=== PATIENT | male | born 2000 | race Caucasian/White ===

== ENCOUNTER 2025-01-03 22:27 | Emergency (ER) | payer OTHER ==
[~2025-01-03] VITALS: Ht 180.3 cm; Wt 84.1 kg
[2025-01-03 22:49] LABS: Urine Bacteria None Seen /hpf (None Seen)
[2025-01-03 22:50] VITALS: PULSE 64; RESP 15; TEMP 97.8; O2SAT 100
--- NOTE | 2025-01-03 22:53 | ED.PDOC ---
General HPI Comments 24 y/o M, with a history of varicoceles, is [id number] ambulance from [facility] ([facility])for c/o left-testicular and lower abdominal pain. Patient is a transfer from [facility] for higher level care for progressively worsening, constant pain he has been having for over 1 year. He endorses on multiple hospital visits for pain in the past and was pending for varicocele- related surgical intervention prior to today's visit. Denies any recent injuries or strenuous or notable activities. Denies any urinary symptoms, nausea, vomiting, fever, chills, or other associated symptoms. Time Seen by MD: 22:38 Reviewed notes: Nurses Notes, Route Service Representative Notes, Medications Allergies: Coded Allergies: NO KNOWN ALLERGIES (Unverified , 01/03/25) Home Meds Active Scripts Gabapentin (Once-Daily) (Gabapentin) 300 Mg Tab, 300 MG PO Q6HP PRN, #30 TAB Prov:DANNY LOPEZ MD 01/04/25 Information Source: Patient, Transfer Record Mode of Arrival: EMS Severity: Moderate Timing: Months Duration: Since onset Prehospital treatment: 12 Lead EKG, Stacker Driver Past Medical History Past Medical History (Other): varicoceles Surgical History: Denies all surgeries Family History Family History: Unknown Social History Smoker: Non-Smoker Alcohol: Denies ETOH Use Drugs: Denies Drug Use Lives In: Home All Other Systems: Reviewed and Negative (as per HPI) Physical Exam General Appearance: Normal, Other (xnvxvyke-br-yqioda distress ) HEENT: Normal ENT Inspection, Pharynx Normal, TMs Normal Neck: Full Range of Motion, Non-Tender, Normal, Normal Inspection Respiratory: Chest Non-Tender, Lungs Clear, No Accessory Muscle Use, No Respiratory Distress, Normal Breath Sounds Cardiovascular: No Edema, No JVD, No Murmur, No Gallop, Normal Peripheral Pulses, Regular Rate/Rhythm Breast Exam: Deferred Gastrointestinal: No Organomegaly, Non Tender, No Pulsatile Mass, Normal Bowel Sounds, Soft Genitalia: Other (tenderness to left testicle ) Pelvic: Deferred Rectal: Deferred Extremities: No calf tenderness, Normal capillary refill, Normal inspection, Normal range of motion, Non-tender, No pedal edema Musculoskeletal : Apperance: Normal Neurologic: Alert, grommet worker II-XII nml as Tested, No Motor Deficits, Normal Affect, Normal Mood, No Sensory Deficits Cerebellar Function: Normal Reflexes: Normal Skin: Dry, Normal Color, Warm Lymphatic: No Adenopathy Was a procedure done? Was a procedure done?: No Differential Diagnosis Kidney stone (Female): N/A Penile/Scrotal: Epidiymitis, Hydrocele, Testicular Torsion, Urolithiasis, Other (varicoceles) X-Ray, Labs, Meds, VS Vital Signs Date Time Temp Pulse Resp B/P (MAP) Pulse Ox O2 Delivery O2 Flow Rate FiO2 01/03/25 23:30 69 15 138/75 01/03/25 23:00 67 18 135/75 01/03/25 22:40 97.8 74 22 138/81 (100) 97 97.8 Lab Test 01/03/25 22:57 01/03/25 22:45 Range/Units White Blood Count 11.4 H 4.4-10.8 10^3/uL Red Blood Count 5.24 4.5-5.90 10^6/uL Hemoglobin 14.8 13.5-17.5 g/dL Hematocrit 44.1 41.0-53.0 % Mean Corpuscular Volume 84.2 80.0-100.0 fL Mean Corpuscular Hemoglobin 28.3 28.0-32.0 pg Mean Corpuscular Hemoglobin Concent 33.6 32.0-36.0 g/dL Red Cell Distribution Width 13.1 11.8-14.3 % Platelet Count 219 140-450 10^3/uL Mean Platelet Volume 8.8 6.9-10.8 fL Neutrophils (%) (Auto) 65.7 37.0-80.0 % Lymphocytes (%) (Auto) 25.9 10.0-50.0 % Monocytes (%) (Auto) 6.2 0.0-12.0 % Eosinophils (%) (Auto) 1.8 0.0-7.0 % Basophils (%) (Auto) 0.4 0.0-2.0 % Neutrophils # (Auto) 7.5 1.6-8.6 10 ^3/uL Lymphocytes # (Auto) 3.0 0.4-5.4 10 ^3/uL Monocytes # (Auto) 0.7 0-1.3 10 ^3/uL Eosinophils # (Auto) 0.2 0-0.8 10 ^3/uL Basophils # (Auto) 0.1 0-0.2 10 ^3/uL Nucleated Red Blood Cells 0.1 % Prothrombin Time 10.6 9.3-11.8 sec Prothrombin Time INR 1.00 0.9-1.15 Activated Partial Thromboplast Time 26.8 24.5-34.5 SEC Sodium Level 139 136-145 mmol/L Potassium Level 3.8 3.5-5.1 mmol/L Chloride Level 105 98-107 mmol/L Carbon Dioxide Level 26 20-31 mmol/L Anion Gap 8 5-15 Blood Urea Nitrogen 15 9-23 mg/dL Creatinine 1.15 0.700-1.30 mg/dL Glomerular Filtration Rate Calc 91 >90 mL/min BUN/Creatinine Ratio 13.0 10.0-20.0 Serum Glucose 85 74-106 mg/dL Calcium Level 9.9 8.7-10.4 mg/dL Total Bilirubin 0.4 0.2-1.0 mg/dL Aspartate Amino Transferase (AST) 22 13-40 U/L Alanine Aminotransferase (ALT) 25 7-40 U/L Alkaline Phosphatase 58 46-116 U/L Total Protein 7.2 5.7-8.2 g/dL Albumin 4.7 3.2-4.8 g/dL Urine Color Yellow Yellow Urine Clarity Clear Clear Urine pH 6.5 5.0-9.0 Urine Specific [place] 1.026 1.001-1.035 Urine Protein Negative Negative Urine Ketones Negative Negative Urine Blood Negative Negative /uL Urine Nitrite Negative Negative Urine Bilirubin Negative Negative Urine Urobilinogen Normal Negative mg/dL Urine Leukocyte Esterase Negative Negative /uL Urine RBC 1 0 - 3 /hpf Urine Microscopic WBC 1 0-3 /HPF Urine Squamous Epithelial Cells None seen <5 /hpf Urine Bacteria None seen None Seen /hpf Urine Mucus Few None Seen Urine Glucose Normal Normal mg/dL Current Medications Medications (Trade) Dose Ordered Sig/Richard Route Start Time Stop Time Status Last Admin Ondansetron HCl (Zofran) 4 mg ONCE ONCE IV 01/03/25 22:45 01/03/25 22:46 DC 01/03/25 23:00 Morphine Sulfate 4 mg ONCE ONCE IV 01/03/25 22:45 01/03/25 22:46 DC 01/03/25 23:00 Time of 1ST Reevaluation: 23:08 Reevaluation 1ST: Unchanged Patient Education/Counseling: Diagnosis, Treatment Family Education/Counseling: No Family Present Departure 1 Departure Time of Disposition: 00:30 Impression: Primary Impression: Left testicular pain Additional Impression: Left varicocele Disposition: 01 HOME / SELF CARE / HOMELESS Condition: Stable e-Prescriptions Gabapentin (Once-Daily) (Gabapentin) 300 Mg Tab 300 MG PO Q6HP PRN, #30 TAB Prov: DANNY LOPEZ MD 01/04/25 Discharged With: Self Critical Care Note Critical Care Time?: No Stability Stability form required: No Heart Score Heart Score: Heart Score Response (Comments) Value History N/A 0 EKG N/A 0 Age N/A 0 Risk Factors N/A 0 Troponin N/A 0 Total 0 I personally scribed for DANNY LOPEZ MD ([email or web address]) on 01/03/25 at 22:53. Electronically submitted by Doni Will [email or web address]). DANNY LOPEZ MD Jan 03, 2025 22:53
[2025-01-03] MEDS: ONDANSETRON HCL 4 MG/2 ML VIAL IV ONE (23:00)
[2025-01-03] MEDS: MORPHINE SULFATE 4 MG/ML SYR/VIAL IV ONE (23:00)
[2025-01-03 23:02] LABS: Urine Blood Negative /uL (Negative); Urine Clarity Clear (Clear); Urine Color Yellow (Yellow); Urine Mucus FEW (None Seen); Urine Protein, UAD Negative (Negative); Urine Specific Gravity 1.026 (1.001-1.035); Urine Squamous Epithelial Cell None Seen /hpf (<5); Urine Urobilinogen Normal (Negative); Urine WBC 1 /HPF (0-3); Urine pH 6.5 (5.0-9.0)
[2025-01-03 23:16] LABS: Basophils # (auto) 0.1 10 ^3/uL (0-0.2); Basophils % (auto) 0.4 % (0.0-2.0); Eosinophils # (auto) 0.2 10 ^3/uL (0-0.8); Eosinophils % (auto) 1.8 % (0.0-7.0); Hematocrit 44.1 % (41.0-53.0); Hemoglobin 14.8 g/dL (13.5-17.5); Lymphocytes % (auto) 25.9 % (10.0-50.0); Mean Corpuscular Hemoglobin 28.3 pg (28.0-32.0); Mean Corpuscular Hgb Conc. 33.6 g/dL (32.0-36.0); Mean Corpuscular Volume 84.2 fL (80.0-100.0); Monocytes # (auto) 0.7 10 ^3/uL (0-1.3); Monocytes % (auto) 6.2 % (0.0-12.0); Neutrophils # (auto) 7.5 10 ^3/uL (1.6-8.6); Neutrophils % (auto) 65.7 % (37.0-80.0); Nucleated Red Blood Cells % 0.1 %; Platelet Count (auto) 219 10^3/uL (140-450); Red Blood Cells 5.24 10^6/uL (4.5-5.90); Red Cell Distribution Width 13.1 % (11.8-14.3); White Blood Cell 11.4 10^3/uL (4.4-10.8)
--- NOTE | 2025-01-03 23:35 | DVH ---
SCROTAL ULTRASOUND CLINICAL HISTORY: left testicle pain COMPARISON: None TECHNIQUE: Grayscale, color-flow, and spectral Doppler ultrasound of the scrotum and its contents was performed. FINDINGS: Right testis: Measures 4.3 x 2.0 x 2.9 cm. No discrete, sizable parenchymal lesions identified. Norm al blood flow on spectral analysis. Left testis: Measures 4.2 x 2.0 x 3.0 cm. No discrete, sizable parenchymal lesions identified. Normal blood flow on spectral analysis. Epididymides: Uniform echotexture. No hyperemia. Hydrocele: Trace left hydrocele. Other: Left varicocele is noted. IMPRESSION: Left varicocele. Trace left hydrocele. No sonographic evidence of testicular torsion at this time.
[2025-01-03 23:38] LABS: Partial Thromboplastin Time 26.8 SEC (24.5-34.5); Prothrombin Time 10.6 sec (9.3-11.8)
[2025-01-03 23:46] LABS: Alanine Aminotransferase 25 U/L (7-40); Albumin 4.7 g/dL (3.2-4.8); Alkaline Phosphatase 58 U/L (46-116); Anion Gap 8 (5-15); Aspartate Aminotransferase 22 U/L (13-40); Bilirubin, Total 0.4 mg/dL (0.2-1.0); Blood Urea Nitrogen 15 mg/dL (9-23); Calcium 9.9 mg/dL (8.7-10.4); Carbon Dioxide 26 mmol/L (20-31); Chloride 105 mmol/L (98-107); Glucose 85 mg/dL (74-106); Potassium 3.8 mmol/L (3.5-5.1); Sodium 139 mmol/L (136-145); Total Protein 7.2 g/dL (5.7-8.2)
[2025-01-04] VITALS: BP 119/69; PULSE 100; RESP 16; O2SAT 95
[2025-01-04] MEDS ORDERED: GABA300T4 PO (00:08)
== END 2025-01-04 01:03 | disposition home or self-care (01) ==
LOC: EDBD 22:27 → ER 22:32
DX: N50.812 Left testicular pain (principal); I86.1 Scrotal varices
CPT/HCPCS: 36415; 76870; 80053; 81001; 85025; 85610; 85730; 96374; 96375; 99285; J2270; J2405